=== PATIENT | female | born 1985 | race Caucasian/White ===

== ENCOUNTER → 2024-01-27 08:00 | Outpatient (CLI) | payer OTHER ==
[2024-01-27 08:26] LABS: HEMATOCRIT 39.7 % (36.0-45.00); MEAN CELL VOLUME 80.4 fL (80.00-100.00); MEAN CORPUSCULAR HEMOGLOBIN 26.4 pg (27.00-32.0); MEAN CORPUSCULAR HGB CONC 32.8 g/dl (32.0-36.0); PLATELET COUNT 255 K/uL (150-450); RED BLOOD COUNT 4.94 M/uL (4.00-6.00); RED CELL DISTRIBUTION WIDTH 15.8 % (11.5-14.5)
[2024-01-27 08:29] VITALS: BP 126/80
[2024-01-27 09:07] LABS: URINE APPEARANCE Clear; URINE BILIRRUBIN Negative (NEGATIVE); URINE BLOOD Negative; URINE COLOR Yellow; URINE GLUCOSE Negative (NEGATIVE); URINE KETONE Negative (NEGATIVE); URINE LEUKOCYTE Trace; URINE NITRATE Negative; URINE PROTEIN Negative (NEGATIVE); URINE UROBILINOGEN 0.2 E.U./dl
[2024-01-27 09:16] LABS: URINE BACTERIA 813.8 uL (0.0-1933); URINE EPITHELIAL CELLS 34.4 uL (0.0-38.8); URINE RBC 13.4 uL (0.0-20.8); URINE WBC 18.5 uL (0.0-23.2)
[2024-01-27 09:17] LABS: INR 1.02; PARTIAL THROMBOPLASTIN TIME 24.5 SECONDS (22.0-34.0); PROTHROMBIN TIME 11.1 SECONDS (9.0-11.5)
[2024-01-27 09:20] LABS: ALBUMIN 4.1 gm/dL (3.4-5.0); BILIRUBIN TOTAL 0.51 mg/dL (0.3-1.2); CALCIUM 9.4 mg/dL (8.5-10.1); CREATININE SERUM 0.6 mg/dL (0.55-1.02); GFR 112.49; GLOBULINA 3.7 G/DL (2.4-3.5); POTASSIUM 4.63 mEq/L (3.5-5.1); TOTAL PROTEIN 7.8 gm/dL (6.4-8.2)
== END | disposition home or self-care (01) ==
LOC: ADM 07:30 → EKG 08:00 → ADM 12:45 → CIR.AMB 02-05 07:00 → EDSTATUS 02-05 07:30
PROVIDERS: ATTEND Otolaryngology Otology & Neurotology
DX: D68.9 Coagulation defect, unspecified (principal); Z03.818 Encounter for observation for suspected exposure to other biological agents ruled out; Z01.818 Encounter for other preprocedural examination; H72.01 Central perforation of tympanic membrane, right ear